=== PATIENT | female | born 1975 | race Caucasian/White ===

== ENCOUNTER 2017-09-28 08:24 | Emergency (ER) | payer OTHER ==
[~2017-09-28] VITALS: Ht 175.3 cm; Wt 99.8 kg
[2017-09-28 08:28] VITALS: BP 133/84
--- NOTE | 2017-09-28 08:55 | ED THROAT/DENTAL COMPLAINT ---
History of Present Illness General Chief Complaint: Allergy Symptoms Stated Complaint: PER PT "ALLERGIC REACTION TO ANTIBIOTICS" Source: patient Exam Limitations: no limitations Vital Signs & Intake/Output Vital Signs & Intake/Output Vital Signs Date Time Temp Pulse Resp B/P B/P Pulse O2 O2 Flow FiO2 Mean Ox Delivery Rate 09/28 0828 99.6 92 20 133/84 98 Room Air Allergies Coded Allergies: NO KNOWN ALLERGIES (08/28/13) Reconcile Medications Amoxicillin/Potassium Clav (Augmentin 875-125 Tablet) 875 MG-125 MG TABLET 1 TAB PO BID DENTAL INFECTION Triage Note: STATES SHE WENT TO DENTIST YESTERDAY FOR BROKEN TOOTH. RX'D AMOXICILLIAN AND TYLENOL #3. TOOK YESTERDAY AND TODAY WOKE UP WITH SWELLING TO FACE. DENIES ANY AIRWAY DIFFICULTIES Triage Nurses Notes Reviewed? yes : No Patient currently breastfeeds: No HPI: Patient has a dental abscess and she saw her dentist yesterday. He put her on amoxicillin and Tylenol with Codeine. Patient states she woke up this morning and the swelling was worse. There is no difficulty breathing or swallowing. There is no fevers or chills. The pain is controlled with Tylenol with Codeine. Patient did not know if she was having allergic reaction to amoxicillin so comes in for evaluation. There is no rash. There is no itching. Past History Travel History Traveled to [place] past 21 day No Medical History Any Pertinent Medical History? see below for history Cardiovascular: hypertension Surgical History Surgical History: non-contributory Psychosocial History What is your primary language O[place]i Tobacco Use: Never used ETOH Use: occasional use Illicit Drug Use: denies illicit drug use Family History Hx Contributory? No Review of Systems Review of Systems Constitutional: Reports: no symptoms. EENTM: Reports: see HPI. Respiratory: Reports: no symptoms. Cardiovascular: Reports: no symptoms. Neurological/Psychological: Reports: no symptoms. Immunologic/Allergic: Reports: no symptoms. Physical Exam Physical Exam General Appearance: well developed/nourished, alert, awake Head: atraumatic Eyes: Bilateral: PERRL, EOMI. Ears: Bilateral: canal normal, Tympanic normal. Mouth/Throat: dental tenderness, mandibular swelling Neck: normal inspection, supple, full range of motion, NO LAD Cardiovascular/Respiratory: normal breath sounds, normal peripheral pulses, regular rate/rhythm, no respiratory distress Neurologic/Psych: no motor/sensory deficits, awake, alert, oriented x 3, normal gait, normal mood/affect Core Measures ACS in differential dx? No Sepsis Present: No Sepsis Focused Exam Completed? No Progress Differential Diagnosis: carious tooth, odontogenic abscess, shraddha-tonsillar abscess Plan of Care: CONTINUE CURRENT TREATMENT PLAN. Departure Departure Disposition: HOME OR SELF CARE Condition: Stable Clinical Impression Primary Impression: Dental infection Referrals: Tram POMPA,Tanika (PCP/Family) Additional Instructions: CONTINUE THE ANTIBIOITCS PRESCRIBED BY YOUR DENTIST IF YOUR FACE IS STILLAS SWOLLEN TOMORROW THEN STOP THE AMOXIL AND START AUGMENTIN 1 PILL TWICE A DAY FOR 10 DAYS REUTNR IF YOU HAVE ANY DIFFICULTY BREATHING OR SWALLOWING OR FOR ANY OTHER CONCERNS Departure Forms: Customer Survey General Discharge Information Prescriptions: Current Visit Scripts Amoxicillin/Potassium Clav (Augmentin 875-125 Tablet) 1 TAB PO BID #20 TAB
[2017-09-28] MEDS ORDERED: AUGMENTIN 875-1 EACH PO (08:57)
== END 2017-09-28 09:00 ==
LOC: ERH 08:24
DX: K04.7 Periapical abscess without sinus (principal)